=== PATIENT | male | born 1975 | race Caucasian/White ===

== ENCOUNTER 2021-06-30 19:44 | Emergency (ER) | payer BC | END 2021-06-30 21:20 | disposition left against medical advice (07) | LOC: MW.ED 19:44 | DX: Z53.21 Procedure and treatment not carried out due to patient leaving prior to being seen by health care provider (principal) ==

== ENCOUNTER 2021-07-01 14:33 | Emergency (ER) | payer BC ==
[2021-07-01] MEDS ORDERED: Ketorolac 30 MG/ML SDV IVPUSH ONE (14:43)
[2021-07-01] MEDS ORDERED: Metoclopramide 10 MG/2 ML SDV IVPUSH ONE ×2 (14:43→15:40)
[2021-07-01] MEDS ORDERED: diphenhydrAMINE 50 MG/ML SDV IVPUSH ONE (14:43)
--- NOTE | 2021-07-01 14:47 | EDM.PDOC ---
ED HPI GENERAL MEDICAL PROBLEM - General Chief Complaint: Headache Stated Complaint: UNABLE TO WALK WELL/ DIZZY/ COVID POSITIVE/ MIGRAI Time Seen by Provider: 07/01/21 14:35 - History of Present Illness INITIAL COMMENTS - FREE TEXT/NARRATIVE: 46-year-old male otherwise well presenting with headache in the setting of Covid. Patient states that he has been sick with Covid symptoms for approximately 7 days he tested +5 days ago. He has had some degree of cough generalized fatigue and myalgias. He initially had shortness of breath but that symptoms improved. Starting yesterday he developed a left-sided headache is a intermittent lancing stabbing left temporal headache with radiation into the left eye with some associated eye tearing. He presented overnight last night but the ER was quite busy and the symptoms went away so he went home but the symptoms returned again today. He notes that he had trouble with migraines when he was younger related to a spine issue but that was treated and resolved and he has not had trouble with headaches since then. He notes that for the last few months he has had intermittent issues with left facial numbness but has not been able to see a doctor for this. No other neurologic symptoms. No clear triggers, exacerbating or alleviating factors. Bilateral Head Pain Score (Numeric/FACES): 10 - Related Data Allergies Allergy/AdvReac Type Severity Reaction Status Date / Time No Known Allergies Allergy Verified 07/01/21 14:36 Home Meds: Home Meds Losartan Potassium 100 mg PO DAILY 07/01/21 [History] atorvaSTATin Calcium [Atorvastatin Calcium] 20 mg PO DAILY 07/01/21 [History] Past Medical History Other Respiratory History: Tested for sleep apnea but result negative as per Gastrointestinal History: Reports: GERD Musculoskeletal History: Reports: Fracture Other Musculoskeletal History: hx Fracture to Left wrist Dermatologic History: Reports: Other (See Below) Other Dermatologic History: left shoulder cyst - Infectious Disease History Infectious Disease History: Reports: Chicken Pox - Past Surgical History Musculoskeletal Surgical History: Reports: Other (See Below) Dermatological Surgical History: Reports: Other (See Below) Social & Family History - Family History Family Medical History: No Pertinent Family History ED ROS GENERAL - Review of Systems Review Of Systems: See Below Free Text/Narrative/Comment: General: Per HPI Skin: No rash. Eyes: No vision problems. ENT: No sore throat. Neck: No neck stiffness. Respiratory: Per HPI Cardiac: No chest pain. Gastrointestinal: No nausea, vomiting or abdominal pain. Urinary: No dysuria. Musculoskeletal: Per HPI Neurologic: Per HPI ED EXAM, GENERAL - Physical Exam Exam: See Below Free Text/Narrative:: General Appearance: No acute distress, appears comfortable Skin: No rash HEENT: Normocephalic/atraumatic, sclera anicteric, mucous membranes moist Neck: Normal range of motion Chest and Lungs: Bilateral breath sounds, clear to auscultation Cardiovascular: Regular rate and rhythm Abdomen: Soft, non-tender Back: Normal Musculoskeletal: No edema or tenderness Neurologic: Awake, alert, strength 5 out of 5 bilateral upper and lower extremities cranial nerves III through XI intact bilaterally, normal [id number] bilaterally Psychiatric: Appropriate, cooperative Course - Vital Signs Last Recorded V/S: Last Vital Signs Temp 97.1 F 07/01/21 14:39 Pulse 96 07/01/21 16:08 Resp 18 07/01/21 16:08 BP 121/83 07/01/21 16:08 Pulse Ox 99 07/01/21 16:08 - Orders/Labs/Meds Meds: Medications Discontinued Medications Generic Name Dose Route Start Last Admin Trade Name Freq PRN Reason Stop Dose Admin Diphenhydramine HCl 25 mg 07/01/21 14:43 07/01/21 14:51 Diphenhydramine 50 Mg/Ml Sdv IVPUSH 07/01/21 14:44 25 mg ONETIME ONE Administration Ketorolac Tromethamine 15 mg 07/01/21 14:43 07/01/21 14:51 Ketorolac 30 Mg/Ml Sdv IVPUSH 07/01/21 14:44 15 mg ONETIME ONE Administration Metoclopramide HCl 10 mg 07/01/21 14:43 07/01/21 14:51 Metoclopramide 10 Mg/2 Ml Sdv IVPUSH 07/01/21 14:44 10 mg ONETIME ONE Administration Metoclopramide HCl 10 mg 07/01/21 15:40 07/01/21 15:46 Metoclopramide 10 Mg/2 Ml Sdv IVPUSH 07/01/21 15:41 10 mg ONETIME ONE Administration Departure - Departure Time of Disposition: 16:57 Disposition: Home, Self-Care 01 Condition: Good Clinical Impression: Cluster headache syndrome, not intractable, COVID-19 - Discharge Information *PRESCRIPTION DRUG MONITORING PROGRAM REVIEWED*: Not Applicable *COPY OF PRESCRIPTION DRUG MONITORING REPORT IN PATIENT [place]: Not Applicable Instructions: Cluster Headache, 10 Things You Can Do to Manage Your COVID-19 Symptoms at Home - [facility] (03/16/2021) Referrals: Nino Carlos MD [Primary Care Provider] - Forms: ED Department Discharge Additional Instructions: I encourage you to continue to take ibuprofen Tylenol for your headache and other Covid symptoms. If your symptoms worsen particularly if you have more trouble breathing or any other new symptoms that concern you please call your doctor or return to the ER. I encourage you to follow-up with neurology for your on and off facial numbness once you have recovered from your COVID. [facility] - Neurology [address], [address] [place] [address] The following information is given to patients seen in the emergency department who are being discharged to home. This information is to outline your options for follow-up care. We provide all patients seen in our emergency department with a follow-up referral. The need for follow-up, as well as the timing and circumstances, are variable depending upon the specifics of your emergency department visit. If you don't have a primary care physician on staff, we will provide you with a referral. We always advise you to contact your personal physician following an emergency department visit to inform them of the circumstance of the visit and for follow-up with them and/or the need for any referrals to a consulting specialist. The emergency department will also refer you to a specialist when appropriate. This referral assures that you have the opportunity for follow-up care with a specialist. All of these measure are taken in an effort to provide you with optimal care, which includes your follow-up. Under all circumstances we always encourage you to contact your private physician who remains a resource for coordinating your care. When calling for follow-up care, please make the office aware that this follow-up is from your recent emergency room visit. If for any reason you are refused follow-up, please contact the [facility] Emergency Department at and asked to speak to the emergency department charge nurse. Sepsis Event Note (ED) - Evaluation Sepsis Screening Result: No Definite Risk - Focused Exam Vital Signs: Vital Signs Temp Pulse Resp BP Pulse Ox 07/01/21 16:08 96 18 121/83 99 07/01/21 15:45 96 18 141/90 H 99 07/01/21 14:39 97.1 F 94 16 136/91 H 98 - Assessment/Plan Assessment:: 46-year-old male presenting with signs and symptoms most consistent with cluster type headache in the setting of COVID-19 infection. Multiple other etiologies were considered. The very brief lancing pain that comes and goes is consistent with subarachnoid hemorrhage. He has no findings of an suggest meningitis or encephalitis. Dural venous sinus thrombosis was considered given the COVID-19. The patient has no persistent pressure-like sensation he has no left eye swelling or facial swelling. Patient has no longstanding history of daily headaches nothing that suggests intracranial mass. No indication for CT imaging at this time. Reglan, Benadryl, Toradol, oxygen have been ordered for symptom management. 1540: On reassessment patient's pain is decreased from 9 out of 10 to 4 out of 10. He is ambulatory with a steady gait he is nontoxic in appearance. Given residual 4 out of 10 pain he requests an additional round of medications and an additional 10 mg of Benadryl be provided. headache con't to improve and patient discharged, ambulatory with a steady gait.
[2021-07-01 15:50] VITALS: PULSE 96
[2021-07-01 16:09] VITALS: BP 121/83
== END 2021-07-01 17:45 | disposition home or self-care (01) ==
LOC: MW.ED 14:33
DX: U07.1 COVID-19 (principal); G44.009 Cluster headache syndrome, unspecified, not intractable
CPT/HCPCS: 96374; 96375; 96376; 99284; J1200; J1885; J2765

== ENCOUNTER 2021-07-04 06:58 | Emergency (ER) | payer BC ==
--- NOTE | 2021-07-04 07:06 | EDM.PDOC ---
ED HPI GENERAL MEDICAL PROBLEM - General Stated Complaint: COVID POSITIVE; SHORTNESS OF BREATH Time Seen by Provider: 07/04/21 07:02 Source of Information: Reports: Patient History Limitations: Reports: No Limitations - History of Present Illness INITIAL COMMENTS - FREE TEXT/NARRATIVE: 46-year-old male presents with worsening shortness of breath and chest pain in the setting of known Covid infection. This is day 9 of symptoms. This is patient's third ER visit. Patient notes that over the last couple of days he has developed nausea with numerous episodes of emesis following heavy coughing episodes. He notes bilateral burning sensation in chest that is worse with coughing. Denies abdominal pain. Notes mild shortness of breath. lungs Pain Score (Numeric/FACES): 1 - Related Data Allergies Allergy/AdvReac Type Severity Reaction Status Date / Time No Known Allergies Allergy Verified 07/04/21 07:34 Home Meds: Home Meds Losartan Potassium 100 mg PO DAILY 07/01/21 [History] atorvaSTATin Calcium [Atorvastatin Calcium] 20 mg PO DAILY 07/01/21 [History] Past Medical History Other Respiratory History: Tested for sleep apnea but result negative as per Gastrointestinal History: Reports: GERD Musculoskeletal History: Reports: Fracture Other Musculoskeletal History: hx Fracture to Left wrist Dermatologic History: Reports: Other (See Below) Other Dermatologic History: left shoulder cyst - Infectious Disease History Infectious Disease History: Reports: Chicken Pox - Past Surgical History Musculoskeletal Surgical History: Reports: Other (See Below) Dermatological Surgical History: Reports: Other (See Below) Social & Family History - Family History Family Medical History: No Pertinent Family History ED ROS GENERAL - Review of Systems Review Of Systems: Comprehensive ROS is negative, except as noted in HPI. ED EXAM, GENERAL - Physical Exam Exam: See Below Exam Limited By: No Limitations General Appearance: Alert, WD/WN, No Apparent Distress Ears: Hearing Grossly Normal Throat/Mouth: Normal Voice, No Airway Compromise Head: Atraumatic, Normocephalic Respiratory/Chest: No Respiratory Distress, Lungs Clear, Normal Breath Sounds, No Accessory Muscle Use Cardiovascular: Normal Peripheral Pulses, Regular Rate, Rhythm GI/Abdominal: Soft, Non-Tender Extremities: Normal Inspection Neurological: Alert, Normal Cognition, Normal Gait Psychiatric: Normal Affect, Normal Mood Skin Exam: Warm, Dry, Intact, Normal Color #1 Interpretation EKG Date: 11/03/21 Time: 07:53 Rhythm: NSR Rate (Beats/Min): 87 [place]: Normal P-Wave: Present QRS: Normal ST-T: Normal QT: Normal SC/PQ Interval: 124 Comparison: NA - No Prior EKG EKG Interpretation Comments: normal EKG Course - Vital Signs Last Recorded V/S: Last Vital Signs Temp 97.4 F 07/04/21 07:10 Pulse 99 07/04/21 07:10 Resp 18 07/04/21 07:10 BP 135/92 H 07/04/21 07:10 Pulse Ox 95 07/04/21 07:10 - Orders/Labs/Meds Orders: Active Orders 24 hr Category Date Time Status Saline Lock Insert [OM.PC] Stat Oth 07/04/21 07:19 Ordered Labs: Laboratory Tests 07/04/21 07/04/21 Range/Units 07:40 07:40 WBC 5.81 (4.0-11.0) K/uL RBC 4.80 (4.50-5.90) M/uL Hgb 14.5 (13.0-17.0) g/dL Hct 42.2 (38.0-50.0) % MCV 87.9 (80.0-98.0) fL MCH 30.2 (27.0-32.0) pg MCHC 34.4 (31.0-37.0) g/dL RDW Std Deviation 44.0 (28.0-62.0) fl RDW Coeff of Gonzalo 14 (11.0-15.0) % Plt Count 156 (150-400) K/uL MPV 10.70 (7.40-12.00) fL Neut % (Auto) 76.1 (48.0-80.0) % Lymph % (Auto) 15.3 L (16.0-40.0) % [place] % (Auto) 6.9 (0.0-15.0) % Eos % (Auto) 1.5 (0.0-7.0) % Baso % (Auto) 0.2 (0.0-1.5) % Neut # (Auto) 4.4 (1.4-5.7) K/uL Lymph # (Auto) 0.9 (0.6-2.4) K/uL [place] # (Auto) 0.4 (0.0-0.8) K/uL Eos # (Auto) 0.1 (0.0-0.7) K/uL Baso # (Auto) 0.0 (0.0-0.1) K/uL Nucleated RBC % 0.0 /100WBC Nucleated RBCs # 0 K/uL Sodium 140 (136-148) mmol/L Potassium 3.8 (3.5-5.1) mmol/L Chloride 103 (98-107) mmol/L Carbon Dioxide 23.1 (21.0-32.0) mmol/L BUN 14 (7.0-18.0) mg/dL Creatinine 1.1 (0.8-1.3) mg/dL Est Cr Clr Drug Dosing 85.72 mL/min Estimated GFR (MDRD) > 60.0 ml/min Glucose 104 (74-106) mg/dL Calcium 8.5 (8.5-10.1) mg/dL Magnesium 2.0 (1.8-2.4) mg/dL Total Bilirubin 0.7 (0.2-1.0) mg/dL AST 50 H (15-37) IU/L ALT 53 (14-63) IU/L Alkaline Phosphatase 67 (46-116) U/L Troponin I < 0.050 (0.000-0.056) ng/mL Total Protein 7.6 (6.4-8.2) g/dL Albumin 3.3 L (3.4-5.0) g/dL Globulin 4.3 H (2.6-4.0) g/dL Albumin/Globulin Ratio 0.8 L (0.9-1.6) Meds: Medications Discontinued Medications Generic Name Dose Route Start Last Admin Trade Name Freq PRN Reason Stop Dose Admin Hydrocodone Bitart/Acetaminophen 2 tab 07/04/21 07:19 07/04/21 07:39 Acetaminophen/Hydrocodone 325-5 Mg Tab PO 07/04/21 07:20 2 tab ONETIME ONE Administration Famotidine 20 mg 07/04/21 07:19 07/04/21 07:39 Famotidine 20 Mg/2 Ml Sdv IVPUSH 07/04/21 07:20 20 mg ONETIME ONE Administration Sodium Chloride 1,000 mls @ 999 mls/hr 07/04/21 07:19 07/04/21 07:39 Normal Saline IV 07/04/21 08:19 999 mls/hr .Bolus ONE Administration Ondansetron HCl 4 mg 07/04/21 07:19 07/04/21 07:39 Ondansetron 4 Mg/2 Ml Sdv IVPUSH 07/04/21 07:20 4 mg ONETIME ONE Administration - Re-Assessments/Exams Free Text/Narrative Re-Assessment/Exam: 07/04/21 07:20 Symptoms are suggestive of posttussive emesis secondary to Covid. Will get basic labs including chest x-ray. Will give 1 L fluid bolus, Zofran, Pepcid for nausea and dehydration. Will give hydrocodone/Tylenol for cough/pain 07/04/21 08:37 Patient symptomatically feeling much better. No evidence of Covid pneumonia than mild right lower lobe groundglass opacities consistent with Covid diagnosis. Will discharge with short course of Robert and Zofran. Return precautions were discussed at length. Departure - Departure Time of Disposition: 08:37 Disposition: Home, Self-Care 01 Condition: Good Clinical Impression: COVID - Discharge Information Instructions: COVID-19: What to Do If You Are Sick- [facility] (11/15/2020) Referrals: Nino Carlos MD [Primary Care Provider] - Additional Instructions: You were seen in the emergency department for nausea and vomiting associated w ith Covid infection. Your labs and chest x-ray do not reveal evidence of Covid pneumonia. Your oxygen saturation is good on room air. You are on day 9 of symptoms, typically people start to feel better after 2 weeks. I did send a prescription to your pharmacy for medication that can help with both cough and pain called Robert. This is an opioid pain medication so please be aware that this can be habit-forming and should only be used as needed. I also sent a prescription for medication called Zofran which can help with your nausea. Try taking this 20 or 30 minutes before eating or drinking. If you are experiencing worsening shortness of breath or chest pain you should come back to the emergency department for reassessment. You should also follow- up with your primary care physician within the next week for reassessment. The following information is given to patients seen in the emergency department who are being discharged to home. This information is to outline your options for follow-up care. We provide all patients seen in our emergency department with a follow-up referral. The need for follow-up, as well as the timing and circumstances, are variable depending upon the specifics of your emergency department visit. If you don't have a primary care physician on staff, we will provide you with a referral. We always advise you to contact your personal physician following an emergency department visit to inform them of the circumstance of the visit and for follow-up with them and/or the need for any referrals to a consulting specialist. The emergency department will also refer you to a specialist when appropriate. This referral assures that you have the opportunity for follow-up care with a specialist. All of these measure are taken in an effort to provide you with optimal care, which includes your follow-up. Under all circumstances we always encourage you to contact your private physician who remains a resource for coordinating your care. When calling for follow-up care, please make the office aware that this follow-up is from your recent emergency room visit. If for any reason you are refused follow-up, please contact the [facility] Emergency Department at and asked to speak to the emergency department charge nurse. Please follow up with your primary care physician. If you do not have a primary care physician, see below: [facility] [address] [place] [id number] [facility] [address] [place] [address] [facility] [address] [place] [id number] Sepsis Event Note (ED) - Focused Exam Vital Signs: Vital Signs Temp Pulse Resp BP Pulse Ox 07/04/21 07:10 97.4 F 99 18 135/92 H 95 - My Orders Last 24 Hours: My Active Orders 07/04/21 07:19 Saline Lock Insert [OM.PC] Stat - Assessment/Plan Last 24 Hours: My Active Orders 07/04/21 07:19 Saline Lock Insert [OM.PC] Stat
[2021-07-04] MEDS ORDERED: Ondansetron 4 MG/2 ML SDV IVPUSH ONE (07:19)
[2021-07-04] MEDS ORDERED: Famotidine 20 MG/2 ML SDV IVPUSH ONE (07:19)
[2021-07-04] MEDS ORDERED: Acetaminophen/HYDROcodone 325-5 MG Tab PO ONE (07:19)
[2021-07-04] MEDS ORDERED: Sodium Chloride 0.9% 1,000 ML IV ONE (07:19)
--- NOTE | 2021-07-04 08:11 | CR ---
INDICATION: COVID positive, worsening symptoms. TECHNIQUE: Chest 1 view. COMPARISON: Chest radiograph 12/03/2016. FINDINGS: Subtle ground-glass opacity in the right lung base. No focal consolidation, pleural effusion, or pneumothorax. Normal heart size and pulmonary vascularity. The bones are unremarkable. IMPRESSION: Subtle ground-glass opacity in the right lung base. Dictated by Juanita Degroot MD @ 07/04/2021 8:09:47 AM (Electronically Signed)
[2021-07-04 08:17] LABS: BLOOD UREA NITROGEN,BUN 14 mg/dL (7.0-18.0); CARBON DIOXIDE,CO2 23.1 mmol/L (21.0-32.0); CHLORIDE,CL 103 mmol/L (98-107); GLUCOSE RANDOM 104 mg/dL (74-106); POTASSIUM,K 3.8 mmol/L (3.5-5.1); SODIUM,NA 140 mmol/L (136-148)
[2021-07-04 08:53] VITALS: BP 123/82; PULSE 84
== END 2021-07-04 08:53 | disposition home or self-care (01) ==
LOC: MW.ED 06:58
DX: U07.1 COVID-19 (principal)
CPT/HCPCS: 36415; 71045; 80053; 83735; 84484; 85025; 93005; 96374; 96375; 99285; A9270; J2405; J3490; J7030

== ENCOUNTER 2022-10-03 09:02 | Emergency (ER) | payer BC ==
[2022-10-03] MEDS ORDERED: Sodium Chloride 0.9% 10 ML Syringe FLUSH PRN (09:12)
[2022-10-03] MEDS ORDERED: Sodium Chloride 0.9% 2.5 ML Syringe FLUSH PRN (09:12)
[2022-10-03 09:52] LABS: CARBON DIOXIDE,CO2 31.7 mmol/L (21.0-32.0); POTASSIUM,K 3.5 mmol/L (3.5-5.1)
[2022-10-03 11:57] VITALS: BP 122/84; PULSE 81
== END 2022-10-03 11:55 | disposition home or self-care (01) ==
LOC: MW.ED 09:02
DX: R07.9 Chest pain, unspecified (principal); R53.83 Other fatigue; R51.9 Headache, unspecified; E78.00 Pure hypercholesterolemia, unspecified; I10 Essential (primary) hypertension; Z79.899 Other long term (current) drug therapy
CPT/HCPCS: 36415; 71045; 80053; 83880; 84443; 84484; 85025; 85379; 86308; 93005; 99285; J3490; 93010; 99284

== ENCOUNTER 2024-11-10 06:27 | Day surgery (SDC) | payer BC ==
[2024-11-10] MEDS: Lactated Ringers 1,000 ML IV SCH (06:57)
[2024-11-10] MEDS ORDERED: propofoL 500 MG/50 ML 50 ML ONE (07:49)
[2024-11-10] MEDS ORDERED: Lidocaine 2% 5 ML SDV ONE (07:51)
[2024-11-10 09:48] VITALS: BP 111/78; PULSE 68
== END 2024-11-10 09:07 | disposition home or self-care (01) ==
LOC: MW.SDS 06:27
PROVIDERS: ATTEND Surgery
DX: Z12.11 Encounter for screening for malignant neoplasm of colon (principal); D12.2 Benign neoplasm of ascending colon; K57.30 Diverticulosis of large intestine without perforation or abscess without bleeding; I10 Essential (primary) hypertension; K21.9 Gastro-esophageal reflux disease without esophagitis; E78.00 Pure hypercholesterolemia, unspecified; G47.30 Sleep apnea, unspecified; E66.9 Obesity, unspecified; Z87.891 Personal history of nicotine dependence; Z79.82 Long term (current) use of aspirin; Z79.899 Other long term (current) drug therapy
CPT/HCPCS: 45380; J2003; J2704; J7120; 00811